=== PATIENT | female | born 1960 | race Caucasian/White ===

== ENCOUNTER 2017-11-25 03:29 | Emergency (ER) | payer OTHER ==
[~2017-11-25] VITALS: Ht 157.5 cm; Wt 99.8 kg
[~2017-11-25 03:29] MED LIST: AMBIEN PO; AMLODIPINE BESYL5 MG PO; ATENOLOL-CHLOR1 EACH PO; B-122500 MCG IM; BENTYL 20 MG TA20 M1 PO; BUPROPION; CARDURA1 MG PO; CEFDINIR300 MG PO; CEFTIN 250 MG250 MG PO; CEFUROXIME500 MG PO; CHLORTHALIDONE25 MG PO; CIPRO250 M1 PO; CIPRO500 MG PO; CIPROFLOXACIN500 M1 PO; CLEOCIN HCL300 MG PO; COZAAR 25 MG TA25 M1 PO; CYCLOBENZAPRINE5 MG PO; CYMBALTA60 MG PO; DIFLUCAN150 MG PO; DIOVAN 80 MG TA80 M1 PO; DIOVAN320 MG PO; DOXAZOSIN MESYLA2 MG PO; DOXYCYCLINE 10100 MG; EPIPEN 2-P0.3 MG/0.3 IM; ESTRACE1 TUBE VAG; FLEXERIL PO; FOLIC ACID1 MG PO; HYDROCODON-ACE1 EACH PO; HYDROCODONE-AP1 EAC6 PO; KEFLEX500 MG PO; KLOR-CON M2020 MEQ PO; KLOR-CON20 MEQ PO; L-ARGININE1000 MG PO; LOPRESSOR25; LOPRESSOR25 PO; MACROBID 100 M100 M1 PO; MACRODANTIN100 MG PO; MINOCYCLINE HC100 M2 PO; NORCO 5-325 TA1 EACH PO; OMEPRAZOLE; ONDANSETRON HCL4 M2 PO; PERCOCET; PERCOCET 5-3251 EACH PO; PERCOCET PO; PHENERGAN25 MG RE; PREDNISONE 10 M10 MG PO; PRESTIQ; PROTONIX 20 MG20 M1 PO; PROTONIX40 M1 PO; TYLENOL325 MG PO; ULTRAM 50MG TAB50 MG PO; VANTIN PO; VERAPAMIL ER180 MG PO; VIBERZI100 MG; VIBERZI100 MG PO; VISTARIL 25 MG25 M1 PO; VITAMIN D1000 UNI1 PO; WELLBUTRIN XL300 MG PO; WELLBUTRIN75 MG PO; XANAX 0.5 MG0.5 M1 PO; XANAX XR2 MG PO; XANAX XR3 MG PO; ZOCOR40 MG PO; ZOFRAN ODT4 MG PO; ZOFRAN ODT4 MG SUBLING; ZOFRAN4 MG PO; [UNRECOGNIZED DRUG - OTHER]; [UNRECOGNIZED DRUG - OTHER]
[2017-11-25] MEDS ORDERED: FLEXERIL PO (03:52)
[2017-11-25] MEDS ORDERED: PERCOCET PO (04:42)
[2017-11-25 04:52] VITALS: BP 141/76
== END 2017-11-25 04:57 | disposition home or self-care (01) ==
LOC: M.ERS 03:29
DX: S39.91XA Unspecified injury of abdomen, initial encounter (principal); I12.9 Hypertensive chronic kidney disease with stage 1 through stage 4 chronic kidney disease, or unspecified chronic kidney disease; N18.3 Chronic kidney disease, stage 3 (moderate); Z88.0 Allergy status to penicillin; Z88.1 Allergy status to other antibiotic agents; Z88.2 Allergy status to sulfonamides; Z88.8 Allergy status to other drugs, medicaments and biological substances; W01.198A Fall on same level from slipping, tripping and stumbling with subsequent striking against other object, initial encounter; Y93.89 Activity, other specified; Y92.89 Other specified places as the place of occurrence of the external cause; Y99.8 Other external cause status

== ENCOUNTER 2018-11-03 13:57 | Emergency (ER) | payer OTHER ==
[~2018-11-03] VITALS: Ht 160 cm; Wt 97.5 kg
[2018-11-03] MEDS ORDERED: CLONIDINE0.1 PO (14:08)
[2018-11-03] MEDS ORDERED: LEXAPRO 10 MG T10 M2 PO (14:08)
[2018-11-03] MEDS ORDERED: LOSARTAN POTAS100 MG PO (14:08)
[2018-11-03] MEDS ORDERED: GABAPENTIN 100100 MG PO (14:09)
[2018-11-03] MEDS ORDERED: TRAMADOL 50 MG50 MG PO (14:09)
[2018-11-03 15:10] LABS: ABSOLUTE BASOPHILS 0.1 thou/uL (0.0-0.2); ABSOLUTE LYMPHOCYTES 1.5 thou/uL (0.8-5.3); ABSOLUTE MONOCYTES 0.5 thou/uL (0.0-1.2); ABSOLUTE NEUTROPHILS 5.4 thou/uL (1.6-8.1); EOSINOPHILS 0.6 %; HEMATOCRIT 38.2 % (37.0-47.0); HEMOGLOBIN 13.4 gm/dL (12.0-15.0); LYMPHOCYTES 20.3 %; MCH 29.7 pg (26.0-34.0); MCHC 35.1 g/dL (28.0-37.0); MCV 84.5 fL (80.0-100.0); MONOCYTES 6.7 %; MPV 9.6 fl. (7.2-11.1); NUCLEATED RBCS 0 /100WBC; PLATELET COUNT* 213 thou/uL (150-400); POLYS 71.4 %; RBC 4.52 mil/uL (4.20-5.00); WBC 7.6 thou/uL (4.0-11.0)
[2018-11-03 16:16] LABS: URINE BILIRUBIN NEGATIVE (Negative); URINE BLOOD NEGATIVE (Negative); URINE CLARITY CLEAR; URINE COLOR YELLOW; URINE GLUCOSE-RANDOM NEGATIVE (Negative); URINE KETONES NEGATIVE (Negative); URINE LEUKOCYTES-REFLEX 1+ (Negative); URINE NITRITE-REFLEX NEGATIVE (Negative); URINE PROTEIN NEGATIVE (Negative); URINE SPECIFIC GRAVITY 1.015 (1.005-1.030)
[2018-11-03 16:22] LABS: ANION GAP 8 mmol/L (7-16); BUN 9 mg/dL (7-18); CALCIUM 8.5 mg/dL (8.5-10.1); CHLORIDE 105 mmol/L (98-107); CO2 26 mmol/L (21-32); GLUCOSE 75 mg/dL (70-99); SODIUM 139 mmol/L (136-145)
[2018-11-03 16:29] LABS: CRYSTALS None Seen /LPF (None Seen); MUCUS None Seen strn/LPF (None Seen); SQUAMOUS 0-3 Few /LPF (0-3); URINE RBC None Seen /HPF (0-2); URINE WBC-REFLEX 0-5 Rare /HPF (0-5)
[2018-11-03 16:30] LABS: BACTERIA-REFLEX 1-9 Few /HPF (None Seen); CASTS None Seen /LPF (None Seen)
[2018-11-03 16:33] LABS: ALBUMIN 3.3 g/dL (3.4-5.0); ALKALINE PHOSPHATASE 65 U/L (46-116); LIPASE 347 U/L (73-393); NT-PRO BRAIN NAT PEPTIDE 1023 pg/mL (<300); SGOT 20 U/L (15-37); SGPT 18 U/L (30-65); TOTAL BILIRUBIN 0.7 mg/dL (<0.1-1.0); TOTAL PROTEIN 6.9 g/dL (6.4-8.2); TROPONIN-I LEVEL <0.06 ng/mL (<0.06)
[2018-11-03 16:33] LABS: INFLUENZA A ANTIGEN None Detected (None Detect); INFLUENZA B ANTIGEN None Detected (None Detect)
[2018-11-03] MEDS ORDERED: ZPAK PO (17:00)
[2018-11-03 17:25] VITALS: BP 152/92
--- NOTE | 2018-11-04 13:59 | EKG ---
[place] [address] ELECTROCARDIOGRAM REPORT Name: JYOTIEUGENE ELISHA Room: [facility]#: [id number] Admission: 11/03/18 Attend Phys: Discharge: 11/03/18 Date of : 64 Report #: [id number] THIS REPORT FOR: //name// [facility] ED Test Date: 2018-11-03 Test Time: 15:27:09 Pat Name: EUGENE MONTES Department: Room: Gender: F Manager Service Desk: Sravani CHRISTIAN : 1960 Requested By: Sade Boogie Order Number: [id number] MD: Brandon Bartlett Measurements Intervals [place] Rate: 64 P: 25 [place]: 146 QRS: 3 QRSD: 84 T: -14 QT: 426 QTc: 433 Interpretive Statements Sinus rhythm Left ventricular hypertrophy, by voltage Nonspecific T abnormalities, anterior leads Compared to ECG 09/26/2017 21:53:44 T-wave abnormality now present Early repolarization no longer present Q waves no longer present Electronically Signed On 11-04-2018 13:59:01 LABORER OPERATOR by Brandon Bartlett [email or web address] <ELECTRONICALLY SIGNED> By: Brandon Bartlett MD, FACC 11/04/18 1359 1527 1527 Brandon Bartlett MD, FAC /EPI
== END 2018-11-03 17:26 | disposition home or self-care (01) ==
LOC: M.ERS 13:57
PROVIDERS: Nurse Practitioner Family
DX: J02.0 Streptococcal pharyngitis (principal); M94.0 Chondrocostal junction syndrome [Tietze]; J20.9 Acute bronchitis, unspecified; M79.662 Pain in left lower leg; R11.10 Vomiting, unspecified; K58.9 Irritable bowel syndrome, unspecified; I10 Essential (primary) hypertension; Z88.0 Allergy status to penicillin; Z88.1 Allergy status to other antibiotic agents; Z88.8 Allergy status to other drugs, medicaments and biological substances; Z88.2 Allergy status to sulfonamides; Z86.2 Personal history of diseases of the blood and blood-forming organs and certain disorders involving the immune mechanism; Z90.49 Acquired absence of other specified parts of digestive tract

== ENCOUNTER 2019-01-21 18:22 | Emergency (ER) | payer OTHER ==
[~2019-01-21] VITALS: Ht 160 cm; Wt 93.9 kg
[~2019-01-21 18:22] MED LIST changes: +CLONIDINE0.1 PO; +GABAPENTIN 100100 MG PO; +LEXAPRO 10 MG T10 M2 PO; +LOSARTAN POTAS100 MG PO; +TRAMADOL 50 MG50 MG PO; +ZPAK PO
[2019-01-21] MEDS ORDERED: XANAX1 MG PO (18:42)
[2019-01-21] MEDS ORDERED: VISTARIL 25 MG25 M1 PO (18:42)
[2019-01-21] MEDS ORDERED: EPI PEN (18:43)
[2019-01-21 19:52] VITALS: BP 122/76
== END 2019-01-21 19:35 | disposition home or self-care (01) ==
LOC: M.ERS 18:22
DX: T23.012A Burn of unspecified degree of left thumb (nail), initial encounter (principal); I10 Essential (primary) hypertension; Z90.49 Acquired absence of other specified parts of digestive tract; Z88.0 Allergy status to penicillin; Z88.1 Allergy status to other antibiotic agents; Z88.2 Allergy status to sulfonamides; Z88.8 Allergy status to other drugs, medicaments and biological substances; X08.8XXA Exposure to other specified smoke, fire and flames, initial encounter; Y93.89 Activity, other specified; Y92.89 Other specified places as the place of occurrence of the external cause; Y99.8 Other external cause status

== ENCOUNTER 2019-05-16 14:34 | Emergency (ER) | payer OTHER ==
[~2019-05-16] VITALS: Ht 162.6 cm; Wt 90.7 kg
[~2019-05-16 14:34] MED LIST changes: +EPI PEN; +XANAX1 MG PO
[2019-05-16] MEDS ORDERED: NEURONTIN 300M300 M2 PO (14:46)
[2019-05-16] MEDS ORDERED: HYDROCHLOROTHIA25 M2 PO (14:47)
[2019-05-16] MEDS ORDERED: NORVASC5 MG PO (14:47)
[2019-05-16] MEDS ORDERED: ONDANSETRON HCL4 M2 PO (14:47)
[2019-05-16] MEDS ORDERED: ZETIA10 MG PO (14:48)
[2019-05-16 16:13] LABS: URINE BILIRUBIN NEGATIVE (Negative); URINE BLOOD NEGATIVE (Negative); URINE CLARITY CLEAR; URINE COLOR YELLOW; URINE GLUCOSE-RANDOM NEGATIVE (Negative); URINE KETONES NEGATIVE (Negative); URINE LEUKOCYTES-REFLEX 2+ (Negative); URINE NITRITE-REFLEX NEGATIVE (Negative); URINE PROTEIN TRACE (Negative); URINE SPECIFIC GRAVITY 1.015 (1.005-1.030); URINE UROBILINOGEN 0.2 E.U./dl (0.2-1.0)
[2019-05-16 16:22] LABS: HYALINE CASTS >10 Many /LPF (None Seen); SQUAMOUS >10 Many /LPF (0-3)
[2019-05-16 16:23] LABS: BACTERIA-REFLEX 1-9 Few /HPF (None Seen); CRYSTALS None Seen /LPF (None Seen); MUCUS 0-3 Light strn/LPF (None Seen); URINE WBC-REFLEX 6-15 Few /HPF (0-5)
[2019-05-16 16:24] LABS: URINE RBC None Seen /HPF (0-2)
[2019-05-16 16:30] LABS: ABSOLUTE LYMPHOCYTES 1.9 thou/uL (0.8-5.3); ABSOLUTE MONOCYTES 0.4 thou/uL (0.0-1.2); ABSOLUTE NEUTROPHILS 3.4 thou/uL (1.6-8.1); BASOPHILS 0.5 %; EOSINOPHILS 0.4 %; HEMATOCRIT 36.1 % (37.0-47.0); HEMOGLOBIN 12.6 gm/dL (12.0-15.0); LYMPHOCYTES 33.5 %; MCHC 34.8 g/dL (28.0-37.0); MCV 83.5 fL (80.0-100.0); MONOCYTES 6.7 %; MPV 9.2 fl. (7.2-11.1); NUCLEATED RBCS 0 /100WBC; PLATELET COUNT* 246 thou/uL (150-400); POLYS 58.9 %; RBC 4.33 mil/uL (4.20-5.00); RDW-CV 13.5 % (10.5-14.5); WBC 5.8 thou/uL (4.0-11.0)
[2019-05-16 16:41] LABS: ANION GAP 7 mmol/L (7-16); BUN 19 mg/dL (7-18); CALCIUM 9.2 mg/dL (8.5-10.1); CHLORIDE 103 mmol/L (98-107); CO2 31 mmol/L (21-32); CREATININE 1.3 mg/dL (0.6-1.3); GLUCOSE 94 mg/dL (70-99); POTASSIUM 4.6 mmol/L (3.5-5.1); SODIUM 141 mmol/L (136-145)
[2019-05-16 16:51] LABS: ALBUMIN 3.6 g/dL (3.4-5.0); ALKALINE PHOSPHATASE 72 U/L (46-116); SGOT 20 U/L (15-37); SGPT 27 U/L (30-65); TOTAL BILIRUBIN 0.5 mg/dL (<0.1-1.0); TOTAL PROTEIN 8.2 g/dL (6.4-8.2); TROPONIN-I LEVEL <0.06 ng/mL (<0.06)
[2019-05-16] MEDS ORDERED: MACROBID 100 M100 M1 PO (19:13)
[2019-05-16 19:19] VITALS: BP 106/43
--- NOTE | 2019-05-17 10:26 | EKG ---
[place] [address] ELECTROCARDIOGRAM REPORT Name: JYOTIEUGENE ELISHA Room: [facility]#: [id number] Admission: 05/16/19 Attend Phys: Discharge: 05/16/19 Date of : 64 Report #: [id number] THIS REPORT FOR: //name// [facility] ED Test Date: 2019-05-16 Test Time: 15:01:21 Pat Name: EUGENE MONTES Department: Room: Gender: F Remote Sensing Scientist: EMILIANO : 1960 Requested By: Sade Boogie Order Number: [id number] MD: Dhaval Garza Measurements Intervals [place] Rate: 53 P: 22 [place]: 151 QRS: 14 QRSD: 83 T: -7 QT: 431 QTc: 405 Interpretive Statements Sinus rhythm Abnormal R-wave progression, early transition LVH by voltage Borderline T abnormalities, inferior leads Compared to ECG 11/03/2018 15:27:09 No significant changes Electronically Signed On 05-17-2019 10:26:14 CDT by Dhaval Garza [email or web address] <ELECTRONICALLY SIGNED> By: Dhaval Garza MD, [facility] 05/17/19 1026 1501 1501 Dhaval Garza MD, [facility] /EPI
== END 2019-05-16 19:20 | disposition home or self-care (01) ==
LOC: M.ERS 14:34
PROVIDERS: Nurse Practitioner Family
DX: N39.0 Urinary tract infection, site not specified (principal); R55 Syncope and collapse; I10 Essential (primary) hypertension; N18.3 Chronic kidney disease, stage 3 (moderate); K58.9 Irritable bowel syndrome, unspecified; M46.90 Unspecified inflammatory spondylopathy, site unspecified; I12.9 Hypertensive chronic kidney disease with stage 1 through stage 4 chronic kidney disease, or unspecified chronic kidney disease; Z90.49 Acquired absence of other specified parts of digestive tract; Z87.440 Personal history of urinary (tract) infections; Z88.0 Allergy status to penicillin; Z88.1 Allergy status to other antibiotic agents; Z88.9 Allergy status to unspecified drugs, medicaments and biological substances; Z88.2 Allergy status to sulfonamides; Z86.2 Personal history of diseases of the blood and blood-forming organs and certain disorders involving the immune mechanism

== ENCOUNTER 2019-12-15 16:23 | Emergency (ER) | payer OTHER ==
[~2019-12-15] VITALS: Ht 160 cm; Wt 97.5 kg
[~2019-12-15 16:23] MED LIST changes: +HYDROCHLOROTHIA25 M2 PO; +NEURONTIN 300M300 M2 PO; +NORVASC5 MG PO; +ZETIA10 MG PO
[2019-12-15] MEDS ORDERED: WELLBUTRIN XL300 MG PO (16:39)
[2019-12-15] MEDS ORDERED: COLESTIPOL HCL1 G1 PO (16:40)
[2019-12-15] MEDS ORDERED: PROTONIX 20 MG20 M1 PO (16:41)
[2019-12-15 17:48] LABS: INFLUENZA A ANTIGEN Negative (Negative); INFLUENZA B ANTIGEN Negative (Negative)
[2019-12-15] MEDS ORDERED: ZPAK PO (17:59)
[2019-12-15 18:06] VITALS: BP 128/50
== END 2019-12-15 18:09 | disposition home or self-care (01) ==
LOC: M.ERS 16:23
PROVIDERS: Nurse Practitioner Family
DX: H66.93 Otitis media, unspecified, bilateral (principal); I10 Essential (primary) hypertension; K58.9 Irritable bowel syndrome, unspecified; Z90.49 Acquired absence of other specified parts of digestive tract; Z87.440 Personal history of urinary (tract) infections; Z88.0 Allergy status to penicillin; Z88.1 Allergy status to other antibiotic agents; Z88.2 Allergy status to sulfonamides

== ENCOUNTER → 2020-10-30 | Outpatient (CLI) | payer OTHER ==
[~2020-10-30] MED LIST changes: +COLESTIPOL HCL1 G1 PO
== END ==
LOC: M.RAD 14:23
PROVIDERS: ATTEND Internal Medicine Hematology & Oncology
DX: I70.0 Atherosclerosis of aorta (principal); R07.81 Pleurodynia; D47.2 Monoclonal gammopathy

== ENCOUNTER 2021-01-19 14:55 | Emergency (ER) | payer OTHER ==
[~2021-01-19] VITALS: Ht 157.5 cm; Wt 95.3 kg
[2021-01-19] MEDS ORDERED: HYDROXYZINE HCL50 MG PO (15:45)
[2021-01-19 15:49] LABS: URINE BILIRUBIN NEGATIVE (Negative); URINE BLOOD 3+ (Negative); URINE CLARITY CLEAR; URINE COLOR YELLOW; URINE GLUCOSE-RANDOM NEGATIVE (Negative); URINE KETONES NEGATIVE (Negative); URINE LEUKOCYTES-REFLEX 1+ (Negative); URINE NITRITE-REFLEX NEGATIVE (Negative); URINE PROTEIN NEGATIVE (Negative); URINE SPECIFIC GRAVITY 1.025 (1.005-1.030); URINE UROBILINOGEN 0.2 E.U./dl (0.2-1.0)
[2021-01-19 15:55] LABS: HYALINE CASTS 0-3 Few /LPF (None Seen); MUCUS 0-3 Light strn/LPF (None Seen); SQUAMOUS >10 Many /LPF (0-3)
[2021-01-19 15:57] LABS: BACTERIA-REFLEX None Seen /HPF (None Seen); CRYSTALS None Seen /LPF (None Seen); URINE RBC >20 Many /HPF (0-2); URINE WBC-REFLEX 0-5 Rare /HPF (0-5)
[2021-01-19 16:19] LABS: ABSOLUTE BASOPHILS 0.1 thou/uL (0.0-0.2); ABSOLUTE EOSINOPHILS 0.1 thou/uL (0.0-0.7); ABSOLUTE LYMPHOCYTES 1.5 thou/uL (0.8-5.3); ABSOLUTE MONOCYTES 0.4 thou/uL (0.0-1.2); ABSOLUTE NEUTROPHILS 3.2 thou/uL (1.6-8.1); BASOPHILS 1.2 %; EOSINOPHILS 1.7 %; HEMATOCRIT 36.4 % (37.0-47.0); HEMOGLOBIN 12.6 gm/dL (12.0-15.0); LYMPHOCYTES 27.7 %; MCH 28.9 pg (26.0-34.0); MCHC 34.6 g/dL (28.0-37.0); MCV 83.7 fL (80.0-100.0); MONOCYTES 8.3 %; MPV 8.9 fl. (7.2-11.1); NUCLEATED RBCS 0 /100WBC; PLATELET COUNT* 250 thou/uL (150-400); POLYS 61.1 %; RBC 4.35 mil/uL (4.20-5.00); RDW-CV 13.5 % (10.5-14.5); WBC 5.3 thou/uL (4.0-11.0)
[2021-01-19 16:28] LABS: CREATININE 1.4 mg/dL (0.6-1.3)
[2021-01-19 16:38] LABS: ALBUMIN 3.3 g/dL (3.4-5.0); TOTAL BILIRUBIN 0.5 mg/dL (<0.1-1.0); TOTAL PROTEIN 7.4 g/dL (6.4-8.2)
[2021-01-19] MEDS ORDERED: ZOFRAN ODT4 MG PO (17:36)
[2021-01-19] MEDS ORDERED: NORCO5 PO (17:36)
[2021-01-19] MEDS ORDERED: MACROBID 100 M100 M2 PO (17:36)
[2021-01-19 17:49] VITALS: BP 133/78
== END 2021-01-19 17:50 | disposition home or self-care (01) ==
LOC: M.ERS 14:55
PROVIDERS: Nurse Practitioner Family
DX: R10.84 Generalized abdominal pain (principal); I10 Essential (primary) hypertension; K58.9 Irritable bowel syndrome, unspecified; Z86.2 Personal history of diseases of the blood and blood-forming organs and certain disorders involving the immune mechanism; Z87.440 Personal history of urinary (tract) infections; M47.9 Spondylosis, unspecified; Z88.0 Allergy status to penicillin; Z88.1 Allergy status to other antibiotic agents; Z88.2 Allergy status to sulfonamides; Z88.8 Allergy status to other drugs, medicaments and biological substances

== ENCOUNTER 2021-06-12 15:21 | Emergency (ER) | payer OTHER ==
[~2021-06-12] VITALS: Ht 160 cm; Wt 95.3 kg
[~2021-06-12 15:21] MED LIST changes: +HYDROXYZINE HCL50 MG PO; +MACROBID 100 M100 M2 PO; +NORCO5 PO
[2021-06-12 17:00] VITALS: BP 159/59
== END 2021-06-12 17:01 | disposition left against medical advice (07) ==
LOC: M.ERS 15:21
DX: Z53.21 Procedure and treatment not carried out due to patient leaving prior to being seen by health care provider (principal)

== ENCOUNTER 2021-06-15 07:31 | Emergency (ER) | payer OTHER ==
[~2021-06-15] VITALS: Ht 160 cm; Wt 95.3 kg
[2021-06-15] MEDS ORDERED: PREDNISONE 20 M20 M1 PO (08:29)
[2021-06-15 08:44] VITALS: BP 134/72
== END 2021-06-15 08:45 | disposition home or self-care (01) ==
LOC: M.ERS 07:31
DX: L25.9 Unspecified contact dermatitis, unspecified cause (principal); I10 Essential (primary) hypertension; Z90.49 Acquired absence of other specified parts of digestive tract; Z79.2 Long term (current) use of antibiotics; Z79.899 Other long term (current) drug therapy; Z88.0 Allergy status to penicillin; Z88.1 Allergy status to other antibiotic agents; Z88.6 Allergy status to analgesic agent